=== PATIENT | female | born 1975 | race African-American/Black ===

== ENCOUNTER 2021-01-18 10:05 | Emergency (ER) | payer OTHER ==
[2021-01-18 10:18] VITALS: BP 149/91; PULSE 65; TEMP 97; BMI 31.7
[2021-01-18] MEDS ORDERED: KETOROLAC TROMETHAMINE 30 MG/1 ML VIAL IM ONE (10:50)
[2021-01-18] MEDS ORDERED: KETOROLAC TROMETHAMINE 30 MG/1 ML VIAL ONE (10:52)
== END 2021-01-18 11:05 | disposition home or self-care (01) ==
LOC: JER 10:05 → JERFT 10:05
PROC: 3E0233Z Introduction of Anti-inflammatory into Muscle, Percutaneous Approach (ICD-10-PCS; principal; 2021-01-18)
DX: M54.5 Low back pain (principal)
CPT/HCPCS: 99284-25

== ENCOUNTER 2021-08-16 14:15 | Emergency (ER) | payer BC, OTHER ==
[2021-08-16 14:27] VITALS: PULSE 77; TEMP 98.4; BMI 30.5
[2021-08-16] MEDS ORDERED: predniSONE 20 MG TABLET (UD) PO ONE (14:53)
[2021-08-16] MEDS ORDERED: ALBUTEROL SO4 2.5/IPRATROPIUM 0.5 INH SOL 3 ML VIAL.NEB. NEB ONE ×2 (14:53→16:01)
[2021-08-16] MEDS ORDERED: IBUPROFEN 600 MG TABLET (FP) PO ONE ×2 (15:16→16:02)
[2021-08-16] MEDS ORDERED: predniSONE 20 MG TABLET (UD) ONE (16:00)
[2021-08-16 17:16] VITALS: BP 135/78
== END 2021-08-16 17:16 | disposition home or self-care (01) ==
LOC: JER 14:15
PROC: 3E0F7GC Introduction of Other Therapeutic Substance into Respiratory Tract, Via Natural or Artificial Opening (ICD-10-PCS; principal; 2021-08-16)
DX: R05.9 Cough, unspecified (principal)
CPT/HCPCS: 71046-TC-FY; 99284-25; C9803; U0003; U0005